=== PATIENT | female | born 1930 | race Native Hawaiian/Other Pacific Islander ===

== ENCOUNTER 2017-02-15 05:46 | Day surgery (SDC) | payer MEDICARE, OTHER ==
[2017-02-14 11:30] VITALS: BMI 23.8
[2017-02-15] MEDS ORDERED: Tropicamide 1% Opht SOLUTION OD SCH (06:00)
[2017-02-15] MEDS ORDERED: Phenylephrine 2.5% Opht Soln OD SCH (06:00)
[2017-02-15] MEDS ORDERED: Cyclopentolate 1% Opth (2 ml) OD SCH (06:00)
[2017-02-15] MEDS ORDERED: Lactated Ringer's 500 ML IV ONE ×2 (06:00→06:30)
[2017-02-15] MEDS ORDERED: Ciprofloxacin 0.3% OPTH SOLN OD SCH (06:00)
[2017-02-15] MEDS ORDERED: Flurbiprofen 0.03% Opht SOLN OD SCH (06:00)
[2017-02-15] MEDS ORDERED: Lidocaine 2% Inj (20ml) ONE (07:23)
[2017-02-15] MEDS ORDERED: Carbachol 0.01% IO ONE ×2 (07:23→07:50)
[2017-02-15] MEDS ORDERED: Hyaluronidase Human, Recombi 150 U/ML VIAL ONE (07:24)
[2017-02-15] MEDS ORDERED: Chondroitin/Hyaluronate Opth Syringe KIT (0.55 ml-0.5 ml) IO ONE (07:24)
[2017-02-15] MEDS ORDERED: Tetracaine 0.5% Ophth (OR ONLY) ONE (08:09)
[2017-02-15] MEDS ORDERED: Midazolam 2 MG/2 ML VIAL ONE (08:16)
[2017-02-15] MEDS: Povidone Iodine Ophthalmic 5% Soln ONE ×2 (08:27→08:33)
[2017-02-15] MEDS: Tobramycin/Dexamethasone OPHT OINT ONE ×2 (08:33→09:04)
[2017-02-15] MEDS ORDERED: Chondroitin/Hyaluronate 40 mg/ml-30 mg/ml Ophth Syringe (0.5 ml) IO ONE (08:39)
[2017-02-15 11:46] VITALS: BP 133/64; PULSE 75; RESP 18; TEMP 98.5; O2SAT 100
--- NOTE | 2017-02-15 12:31 | OP ---
PROCEDURE DATE: 02/15/2017 PREOPERATIVE DIAGNOSIS: Cataract, right eye. POSTOPERATIVE DIAGNOSIS: Cataract, right eye. OPERATIVE PROCEDURE: Phacoemulsification, Right eye with insertion of posterior chamber implant with utilization of capsular dye. SURGEON: Zachary Pelletier MD ANESTHESIA: Local with intravenous sedation. PROCEDURE: The patient was brought into the operating room and placed in supine position, prepped and draped in the usual fashion for ophthalmic surgery. Lid speculum inserted, lids and exposing globe. On inspection, there was noted to be a hypermature cataract. A side-port incision was made superiorly and inferiorly with disposable sharp blade. An air bubble was injected in the anterior chamber followed by capsular dye to stain the anterior capsule. The dye was irrigated out of the anterior chamber with balanced salt solution. The anterior chamber was deepened with Viscoat. A near clear corneal incision was made temporally with a 2.75-mm keratome. Capsulorrhexis was performed with Utrata forceps. Hydrodissection was carried out with balanced salt solution. The nucleus was then phacoemulsified. Remaining cortical fragments were aspirated with a split irrigation and aspiration system. The capsular sac was filled with Provisc. Posterior chamber lens was injected into the sac and rotated into horizontal position. Provisc was aspirated out of the anterior chamber. Pupil was constricted with Miochol. The wound was hydrated with balanced salt solution and found to be watertight. Topical Timoptic, Betadine, TobraDex ointment, and pressure patch were applied. The patient tolerated the procedure well. Zachary Pelletier MD
== END 2017-02-15 10:38 | disposition home or self-care (01) ==
LOC: C.SDS 05:46
PROVIDERS: ATTEND Ophthalmology
DX: H26.9 Unspecified cataract (principal)
CPT/HCPCS: 66984; J2250; J3010; J3470; J7120; V2632